=== PATIENT | male | born 1975 | race Two or more races ===

== ENCOUNTER 2025-02-26 04:35 | Emergency (ER) | payer OTHER ==
[2025-02-26] MEDS ORDERED: Ketorolac Tromethamine 30 MG (1 mL) VIAL ONE (05:22)
== END 2025-02-26 05:47 | disposition home or self-care (01) ==
LOC: MADERS 04:35
DX: L97.329 Non-pressure chronic ulcer of left ankle with unspecified severity (principal); E11.9 Type 2 diabetes mellitus without complications; E66.9 Obesity, unspecified; I10 Essential (primary) hypertension; F17.210 Nicotine dependence, cigarettes, uncomplicated
CPT/HCPCS: 96372; 99283; J1885

== ENCOUNTER 2025-02-27 20:20 | Emergency (ER) | payer OTHER | END 2025-02-27 21:11 | disposition home or self-care (01) | LOC: MADERS 20:20 | DX: I10 Essential (primary) hypertension (principal); E11.9 Type 2 diabetes mellitus without complications; E66.9 Obesity, unspecified; F17.210 Nicotine dependence, cigarettes, uncomplicated | CPT/HCPCS: 99283 ==

== ENCOUNTER 2025-03-04 12:11 | Emergency (ER) | payer OTHER ==
[2025-03-04 12:54] LABS: #Basophils 0.1 thou/uL (0.0-0.2); #Eosinophils 0.5 thou/uL (0.0-0.7); #Lymphocytes 1.8 thou/uL (1.20-3.40); #Monocytes 0.4 thou/uL (0.11-0.59); #Neutrophils 4.0 thou/uL (1.40-6.50); %Basophils 1.3 % (0.0-1.0); %Eosinophils 7.8 % (0.0-10.0); %Lymphocytes 25.9 % (21.0-51.0); %Monocytes 5.8 % (0.0-10.0); %Neutrophils 59.2 % (42.0-75.0); Hematocrit 42.2 % (42.0-52.0); Hemoglobin 13.5 g/dL (14.0-18.0); Mean Corpuscular Hemoglobin 30.0 pg (27.0-31.0); Mean Corpuscular Volume 93.5 fl (78.0-98.0); Platelet Count 329 10x3/uL (130-400); Red Blood Cell (RBC) Count 4.51 mill/uL (4.70-6.10); White Blood Cell (WBC) Count 6.8 10x3/uL (4.8-10.8)
[2025-03-04 12:58] LABS: INR-International Normal Ratio 1.0; Prothrombin Time 13.2 sec (12.0-14.7)
[2025-03-04 12:59] LABS: PTT 31.9 sec (22.9-36.1)
[2025-03-04 13:07] LABS: ALT (SGPT) 18 U/L (Less than 45); AST (SGOT) 29 U/L (11-34); Albumin 4.3 g/dL (3.1-4.5); Alkaline Phosphatase 104 U/L (40-110); Anion Gap 17 mmol/L (10-20); BUN (Urea Nitrogen) 20 mg/dL (8.9-20.6); Bilirubin, Total 0.4 mg/dL (0.3-1.2); Calc. Creatinine Clearance 0 mL/min (70-130); Calcium 9.4 mg/dL (7.8-10.44); Carbon Dioxide 24 mmol/L (22-29); Chloride 103 mmol/L (98-107); Globulin 3.0 g/dL (2.4-3.5); Glucose 114 mg/dL (70-105); Magnesium 2.3 mg/dL (1.6-2.6); Potassium 4.1 mmol/L (3.5-5.1); Sodium 140 mmol/L (136-145)
[2025-03-04 13:13] LABS: Troponin I 0.078 ng/mL (< 0.028)
[2025-03-04] MEDS ORDERED: Aspirin Chewable 81 MG TAB ONE (13:25)
[2025-03-04 15:46] LABS: Troponin I 0.079 ng/mL (< 0.028)
== END 2025-03-04 16:43 | disposition short-term general hospital (02) ==
LOC: MADERS 12:11
DX: S81.802A Unspecified open wound, left lower leg, initial encounter (principal); I10 Essential (primary) hypertension; I16.1 Hypertensive emergency; R94.4 Abnormal results of kidney function studies; R69 Illness, unspecified; R79.89 Other specified abnormal findings of blood chemistry; R20.2 Paresthesia of skin; I73.9 Peripheral vascular disease, unspecified; R29.700 NIHSS score 0; E11.9 Type 2 diabetes mellitus without complications; E66.9 Obesity, unspecified; F17.210 Nicotine dependence, cigarettes, uncomplicated; Z79.899 Other long term (current) drug therapy
CPT/HCPCS: 36415; 70450; 83735; 93005; 96374